=== PATIENT | male | born 1995 | race Hispanic/Latino ===

== ENCOUNTER 2022-12-24 00:07 | Emergency (ER) | payer OTHER ==
[~2022-12-24] VITALS: Ht 172.7 cm; Wt 75.7 kg
[2022-12-24 02:46] VITALS: BP 135/89
== END 2022-12-24 02:52 | disposition home or self-care (01) ==
LOC: ER 00:12
DX: F41.0 Panic disorder [episodic paroxysmal anxiety] (principal)
CPT/HCPCS: 99282